=== PATIENT | male | born 1995 | race Two or more races ===

== ENCOUNTER 2023-09-17 18:18 | Emergency (ER) | payer SELFPAY ==
[2023-09-17] MEDS: Cephalexin 500 MG Cap PO ONE (19:15)
[2023-09-17] MEDS: Acetaminophen/HYDROcodone 325-5 MG Tab PO ONE (19:15)
== END 2023-09-17 20:47 | disposition home or self-care (01) ==
LOC: MW.ED 18:18
DX: S67.22XA Crushing injury of left hand, initial encounter (principal); Z75.8 Other problems related to medical facilities and other health care; Z79.899 Other long term (current) drug therapy; X58.XXXA Exposure to other specified factors, initial encounter
CPT/HCPCS: 73110; 73130; 99283; A9270

== ENCOUNTER 2025-01-31 20:21 | Emergency (ER) | payer OTHER | END 2025-01-31 21:43 | disposition home or self-care (01) | LOC: MW.ED 20:21 | DX: M75.51 Bursitis of right shoulder (principal); Z79.899 Other long term (current) drug therapy | CPT/HCPCS: 99283 ==

== ENCOUNTER 2025-02-09 04:40 | Emergency (ER) | payer OTHER ==
[2025-02-09 05:35] LABS: BASOPHILS ABSOLUTE AUTO 0.07 K/uL (0.00-0.20); BASOPHILS PERCENT AUTO 0.6 % (0.0-1.0); EOSINOPHILS ABSOLUTE AUTO 0.04 K/uL (0.00-0.45); EOSINOPHILS PERCENT AUTO 0.3 % (0.0-6.0); IMMATURE GRAN ABSOLUTE AUTO 0.05 K/uL (0.00-0.05); IMMATURE GRAN PERCENT AUTO 0.4 % (0.0-0.4); LYMPHOCYTES ABSOLUTE AUTO 2.61 K/uL (1.00-4.80); LYMPHOCYTES PERCENT AUTO 22.4 % (24.0-44.0); MEAN PLATELET VOLUME 7.8 fL (9.4-12.4); MONOCYTES ABSOLUTE AUTO 0.80 K/uL (0.00-0.80); MONOCYTES PERCENT AUTO 6.9 % (0.0-8.0); NEUTROPHILS ABSOLUTE AUTO 8.09 K/uL (1.80-7.70); NEUTROPHILS PERCENT AUTO 69.4 % (41.0-71.0); NRBC ABSOLUTE 0.00 K/uL (0.00-0.02); NRBC PERCENT 0.0 /100WBC (0.0-0.2); PLATELET COUNT,PLT 364 K/uL (150-400); RED BLOOD CELL COUNT 6.10 M/uL (4.52-5.90); WHITE BLOOD CELL COUNT,WBC 11.66 K/uL (3.9-11.3)
[2025-02-09 06:03] LABS: BASE EXCESS VENOUS 3.5 (-2.0-3.0); BICARBONATE,VENOUS 27.0 mEq/L (22-29); PCO2 VENOUS 36.0 mmHG (41-51); PH,VENOUS 7.48 (7.32-7.43); PO2 VENOUS 80.0 mmHG (35-45)
[2025-02-09 06:06] LABS: A/G RATIO 1.4 (0.9-1.6); ALANINE AMINOTRANSFERASE,ALT 61 IU/L (14-63); ASPARTATE AMNIOTRANSFERASE,AST 31 IU/L (15-37); BILIRUBIN TOTAL 1.0 mg/dL (0.2-1.0); BLOOD UREA NITROGEN,BUN 20 mg/dL (7.0-18.0); CARBON DIOXIDE,CO2 27.1 mmol/L (21.0-32.0); CHLORIDE,CL 101 mmol/L (98-107); CREATININE 1.0 mg/dL (0.8-1.3); EST CRCL DRUG DOSING (CG) 95.70 mL/min; GLUCOSE RANDOM 114 mg/dL (74-106); POTASSIUM,K 3.7 mmol/L (3.5-5.1); PROTEIN TOTAL,TP 7.8 g/dL (6.4-8.2); SODIUM,NA 141 mmol/L (136-148); TSH ULTRASENSITIVE 1.11 uIU/mL (0.36-3.74)
[2025-02-09] MEDS ORDERED: Ketamine 500 mg/10 ML MDV IV PRN ×2 (06:08→06:15)
[2025-02-09 06:14] LABS: ESTIMATED GFR 103 mL/min (>60)
[2025-02-09] MEDS: Ondansetron 4 MG/2 ML SDV IVPUSH ONE (06:21)
[2025-02-09] MEDS: Iopamidol 755 MG/ML 500 ML Multipack Bottle IVPUSH STA (06:41)
[2025-02-09 07:28] LABS: APPEARANCE,URINE CLEAR; GLUCOSE,URINE NEGATIVE (NEGATIVE); OCCULT BLOOD,URINE NEGATIVE (NEGATIVE)
[2025-02-09 07:35] LABS: AMPHETAMINES SCREEN, URINE PRESUMPTIVE POSITIVE (CUTOFF=500); BUPRENORPHINE SCREEN,URINE NEGATIVE (CUTOFF=10); METHADONE SCREEN, URINE NEGATIVE (CUTOFF=200); METHAMPHETAMINES SCREEN, URINE PRESUMPTIVE POSITIVE (CUTOFF=500); OXYCODONE SCREEN,URINE NEGATIVE (CUT0FF=100); PCP SCREEN,URINE NEGATIVE (CUTOFF=25); THC SCREEN,URINE 20 NG/ML NEGATIVE (CUTOFF=50)
[2025-02-09] MEDS: Propofol 200 MG/20 ML SDV IVPUSH PRN (07:46)
[2025-02-09 07:48] LABS: HIV12 AG/AB 4TH GEN W/REFLEX 0.3 INDEX (<1.0)
[2025-02-09] MEDS: Propofol 200 MG/20 ML SDV IVPUSH ONE (09:23)
== END 2025-02-09 08:44 ==
LOC: MW.ED 04:40
DX: T18.5XXA Foreign body in anus and rectum, initial encounter (principal); F15.129 Other stimulant abuse with intoxication, unspecified; Z79.899 Other long term (current) drug therapy; W44.9XXA Unspecified foreign body entering into or through a natural orifice, initial encounter
CPT/HCPCS: 36415; 72170; 72170-26; 74177; 74177-26; 80053; 80143; 80179; 80305; 81003; 82803; 83735; 84443; 85025; 86803; 86850; 86900; 86901; 87389; 93005; 93010; 96361; 96374; 99284; 99285-25; J2405; J2704; J7030; Q9967